=== PATIENT | female | born 1945 | race Caucasian/White ===

== ENCOUNTER → 2023-06-29 09:12 | Outpatient (REF) | payer MEDICARE, OTHER, SELFPAY ==
[2023-06-29 13:18] LABS: % Basophils 0.7 % (0-2); % Eosinophils 3.3 % (0-6); % Immature Granulocytes 0.2 % (0-0.5); % Lymphocytes 31.1 % (20.5-51.1); % Monocytes 8.2 % (1.7-9.3); % Neutrophils 56.5 % (42.2-75.2); Absolute Eosinophils 0.2 10^3/uL (0-0.7); Absolute Lymphocytes 1.7 10^3/uL (1.2-3.4); Absolute Monocytes 0.5 10^3/uL (0.1-0.6); Absolute Neutrophils 3.1 10^3/uL (1.4-6.5); Hematocrit 35.7 % (37.0-47.0); Hemoglobin 11.4 g/dL (12.0-16.0); Mean Corp Hgb Conc. 31.9 g/dL (33.0-37.0); Mean Corpuscular Hgb 30.7 pg (27.0-31.0); Mean Corpuscular Volume 96.2 fL (81.0-99.0); Mean Platelet Volume 10.5 fL (7.4-10.4); Nucleated Red Blood Cells % 0 %; Platelet Count 214 10^3/uL (130-400); Red Blood Cell Count 3.71 10^6/uL (4.20-5.40); Red Cell Dist. Width 13.6 % (11.5-14.5); White Blood Cell Count 5.5 10^3/uL (4.8-10.8)
[2023-06-29 13:39] LABS: ALT (SGPT) < 10 U/L (0-35); AST (SGOT) 27 U/L (14-36); Albumin 4.1 g/dl (3.5-5.0); Alkaline Phosphatase 65 U/L (38-126); Blood Urea Nitrogen 18 mg/dl (7-17); Calcium 9.4 mg/dl (8.4-10.2); Carbon Dioxide 28 mmol/L (22-30); Chloride 107 mmol/L (98-107); Glucose 89 mg/dl (70-99); Iron 109 ug/dl (37-170); Potassium 4.5 mmol/L (3.5-5.1); Sodium 138 mmol/L (135-145); Total Bilirubin 0.9 mg/dl (0.2-1.3); Total Protein 6.2 g/dl (6.3-8.2); Uric Acid 4.1 mg/dl (2.5-6.2); eGFR 51.43
[2023-06-29 13:49] LABS: Percent Saturation 43 % (20-50); Total Iron Binding Capacity 252 ug/dl (265-497)
[2023-06-29 14:36] LABS: Folate > 20.0 ng/ml (2.76-20); Vitamin B12 889 pg/ml (239-931)
== END ==
LOC: HWLAB 09:12
PROVIDERS: ATTENDING PHYSICIAN Nurse Practitioner Adult Health; FAMILY PHYSICIAN Nurse Practitioner Family; REFERRING PHYSICIAN Internal Medicine Rheumatology
DX: D50.9 Iron deficiency anemia, unspecified (principal); D51.3 Other dietary vitamin B12 deficiency anemia; M1A.3790 Chronic gout due to renal impairment, unspecified ankle and foot, without tophus (tophi); I48.91 Unspecified atrial fibrillation
CPT/HCPCS: 36415; 80053; 82607; 82728; 82746; 83540; 83550; 84550; 85025

== ENCOUNTER → 2023-09-27 08:33 | Outpatient (REF) | payer MEDICARE, OTHER, SELFPAY ==
[2023-09-27 12:40] LABS: % Basophils 0.7 % (0-2); % Eosinophils 2.8 % (0-6); % Immature Granulocytes 0.3 % (0-0.5); % Lymphocytes 32.1 % (20.5-51.1); % Neutrophils 56.1 % (42.2-75.2); Absolute Eosinophils 0.2 10^3/uL (0-0.7); Absolute Lymphocytes 1.9 10^3/uL (1.2-3.4); Absolute Monocytes 0.5 10^3/uL (0.1-0.6); Absolute Neutrophils 3.4 10^3/uL (1.4-6.5); Hematocrit 35.7 % (37.0-47.0); Hemoglobin 11.3 g/dL (12.0-16.0); Mean Corp Hgb Conc. 31.7 g/dL (33.0-37.0); Mean Corpuscular Hgb 30.5 pg (27.0-31.0); Mean Corpuscular Volume 96.2 fL (81.0-99.0); Mean Platelet Volume 10.9 fL (7.4-10.4); Nucleated Red Blood Cells % 0 %; Platelet Count 200 10^3/uL (130-400); Red Blood Cell Count 3.71 10^6/uL (4.20-5.40); Red Cell Dist. Width 14.2 % (11.5-14.5)
[2023-09-27 12:56] LABS: Iron 120 ug/dl (37-170)
[2023-09-27 13:06] LABS: Percent Saturation 50 % (20-50); Total Iron Binding Capacity 237 ug/dl (265-497)
[2023-09-27 14:46] LABS: Ferritin 57.5 ng/ml (11.1-264.0)
[2023-09-27 15:17] LABS: Folate 12.1 ng/ml (2.76-20); Vitamin B12 632 pg/ml (239-931)
== END ==
LOC: HWLAB 08:33
PROVIDERS: ATTENDING PHYSICIAN Nurse Practitioner Adult Health; FAMILY PHYSICIAN Nurse Practitioner Family
DX: D50.9 Iron deficiency anemia, unspecified (principal); D51.3 Other dietary vitamin B12 deficiency anemia
CPT/HCPCS: 36415; 82607; 82728; 82746; 83540; 83550; 85025

== ENCOUNTER → 2023-10-11 09:16 | Outpatient (REF) | payer MEDICARE, OTHER, SELFPAY ==
[2023-10-11 12:17] LABS: ALT (SGPT) < 10 U/L (0-35); AST (SGOT) 25 U/L (14-36); Albumin 3.8 g/dl (3.5-5.0); Alkaline Phosphatase 71 U/L (38-126); Blood Urea Nitrogen 16 mg/dl (7-17); Calcium 9.2 mg/dl (8.4-10.2); Carbon Dioxide 22 mmol/L (22-30); Chloride 109 mmol/L (98-107); Glucose 96 mg/dl (70-99); Sodium 141 mmol/L (135-145); Total Bilirubin 0.8 mg/dl (0.2-1.3); Total Protein 6.2 g/dl (6.3-8.2); eGFR > 60.00
[2023-10-11 12:47] LABS: TSH 2.86 uIU/ml (0.47-4.68)
[2023-10-12 14:01] LABS: Thyroglobulin <0.1 ng/mL (1.3-31.8); Thyroglobulin Antibodies <0.9 IU/mL (0.0-4.0)
== END ==
LOC: HWLAB 09:16
PROVIDERS: ATTENDING PHYSICIAN Internal Medicine Endocrinology, Diabetes & Metabolism; FAMILY PHYSICIAN Nurse Practitioner Family
DX: C73 Malignant neoplasm of thyroid gland (principal); E03.9 Hypothyroidism, unspecified
CPT/HCPCS: 36415; 80053; 84432; 84443; 86800

== ENCOUNTER → 2023-12-09 09:21 | Outpatient (REF) | payer MEDICARE, OTHER, SELFPAY ==
[2023-12-09 11:46] LABS: % Basophils 0.6 % (0-2); % Eosinophils 3.1 % (0-6); % Immature Granulocytes 0.3 % (0-0.5); % Monocytes 6.4 % (1.7-9.3); % Neutrophils 66.6 % (42.2-75.2); Absolute Eosinophils 0.2 10^3/uL (0-0.7); Absolute Lymphocytes 1.5 10^3/uL (1.2-3.4); Absolute Monocytes 0.4 10^3/uL (0.1-0.6); Absolute Neutrophils 4.3 10^3/uL (1.4-6.5); Hematocrit 33.3 % (37.0-47.0); Hemoglobin 10.7 g/dL (12.0-16.0); Mean Corp Hgb Conc. 32.1 g/dL (33.0-37.0); Mean Corpuscular Hgb 30.3 pg (27.0-31.0); Mean Corpuscular Volume 94.3 fL (81.0-99.0); Mean Platelet Volume 11.2 fL (7.4-10.4); Nucleated Red Blood Cells % 0 %; Platelet Count 219 10^3/uL (130-400); Red Blood Cell Count 3.53 10^6/uL (4.20-5.40); White Blood Cell Count 6.4 10^3/uL (4.8-10.8)
[2023-12-09 11:59] LABS: ALT (SGPT) < 10 U/L (0-35); AST (SGOT) 27 U/L (14-36); Albumin 4.4 g/dl (3.5-5.0); Alkaline Phosphatase 65 U/L (38-126); Blood Urea Nitrogen 15 mg/dl (7-17); Carbon Dioxide 26 mmol/L (22-30); Chloride 107 mmol/L (98-107); Glucose 90 mg/dl (70-99); Iron 74 ug/dl (37-170); Total Cholesterol 151 mg/dl (50-199); Total Protein 6.5 g/dl (6.3-8.2); Triglyceride 76 mg/dl (10-149); Very Low Density Lipoprotein 15 mg/dl (0-30); eGFR > 60.00
[2023-12-09 12:24] LABS: Calcium 9.4 mg/dl (8.4-10.2); HDL Cholesterol 66 mg/dl; LDL Cholesterol, Calculated 70 mg/dl; Potassium 4.2 mmol/L (3.5-5.1); Sodium 140 mmol/L (135-145)
[2023-12-09 12:41] LABS: Magnesium 1.9 mg/dl (1.6-2.3)
[2023-12-09 13:00] LABS: TSH Reflex To Free T4 3.27 uIU/ml (0.47-4.68)
[2023-12-09 13:04] LABS: Ferritin 59.3 ng/ml (11.1-264.0)
[2023-12-09 13:16] LABS: Glycohemoglobin (HgbA1c) 5.2 % (4.0-5.6)
== END ==
LOC: HWLAB 09:21
PROVIDERS: ATTENDING PHYSICIAN Nurse Practitioner Family
DX: Z00.00 Encounter for general adult medical examination without abnormal findings (principal); I48.0 Paroxysmal atrial fibrillation; I10 Essential (primary) hypertension; I34.0 Nonrheumatic mitral (valve) insufficiency; E78.00 Pure hypercholesterolemia, unspecified; E11.9 Type 2 diabetes mellitus without complications; M81.0 Age-related osteoporosis without current pathological fracture; I89.0 Lymphedema, not elsewhere classified; D50.8 Other iron deficiency anemias; M10.9 Gout, unspecified; Z12.39 Encounter for other screening for malignant neoplasm of breast; Z12.11 Encounter for screening for malignant neoplasm of colon; R91.8 Other nonspecific abnormal finding of lung field; N18.32 Chronic kidney disease, stage 3b; K21.9 Gastro-esophageal reflux disease without esophagitis; E83.42 Hypomagnesemia; I25.10 Atherosclerotic heart disease of native coronary artery without angina pectoris; I25.84 Coronary atherosclerosis due to calcified coronary lesion; Z87.892 Personal history of anaphylaxis
CPT/HCPCS: 36415; 80053; 80061; 82728; 83036; 83540; 83735; 84443; 85025

== ENCOUNTER → 2024-01-05 09:12 | Outpatient (REF) | payer MEDICARE, OTHER, SELFPAY ==
[2024-01-05 12:28] LABS: % Basophils 0.6 % (0-2); % Eosinophils 3.3 % (0-6); % Immature Granulocytes 0.3 % (0-0.5); % Lymphocytes 27.1 % (20.5-51.1); % Monocytes 6.8 % (1.7-9.3); % Neutrophils 61.9 % (42.2-75.2); Absolute Eosinophils 0.2 10^3/uL (0-0.7); Absolute Lymphocytes 1.8 10^3/uL (1.2-3.4); Absolute Monocytes 0.5 10^3/uL (0.1-0.6); Absolute Neutrophils 4.1 10^3/uL (1.4-6.5); Hematocrit 34.8 % (37.0-47.0); Mean Corp Hgb Conc. 31.6 g/dL (33.0-37.0); Mean Corpuscular Hgb 29.8 pg (27.0-31.0); Mean Corpuscular Volume 94.3 fL (81.0-99.0); Mean Platelet Volume 10.9 fL (7.4-10.4); Nucleated Red Blood Cells % 0 %; Platelet Count 222 10^3/uL (130-400); Red Blood Cell Count 3.69 10^6/uL (4.20-5.40); Red Cell Dist. Width 14.4 % (11.5-14.5); White Blood Cell Count 6.7 10^3/uL (4.8-10.8)
[2024-01-05 12:43] LABS: ALT (SGPT) < 10 U/L (0-35); AST (SGOT) 24 U/L (14-36); Albumin 4.1 g/dl (3.5-5.0); Alkaline Phosphatase 71 U/L (38-126); Blood Urea Nitrogen 25 mg/dl (7-17); Calcium 9.7 mg/dl (8.4-10.2); Carbon Dioxide 25 mmol/L (22-30); Chloride 107 mmol/L (98-107); Glucose 96 mg/dl (70-99); Potassium 4.3 mmol/L (3.5-5.1); Sodium 138 mmol/L (135-145); Total Bilirubin 0.9 mg/dl (0.2-1.3); Total Protein 6.2 g/dl (6.3-8.2); Uric Acid 4.4 mg/dl (2.5-6.2); eGFR 51.11
[2024-01-05 12:58] LABS: Vitamin D, 25-OH*** 37.5 ng/mL (30-80)
== END ==
LOC: HWLAB 09:12
PROVIDERS: ATTENDING PHYSICIAN Internal Medicine Rheumatology; FAMILY PHYSICIAN Nurse Practitioner Family
DX: E55.9 Vitamin D deficiency, unspecified (principal); M1A.3790 Chronic gout due to renal impairment, unspecified ankle and foot, without tophus (tophi)
CPT/HCPCS: 36415; 80053; 82306; 84550; 85025

== ENCOUNTER → 2024-04-04 11:25 | Outpatient (REF) | payer MEDICARE, OTHER, SELFPAY | LOC: HWWDC 11:25 | PROVIDERS: ATTENDING PHYSICIAN Nurse Practitioner Family | DX: Z12.39 Encounter for other screening for malignant neoplasm of breast (principal) | CPT/HCPCS: 77063; 77067 ==

== ENCOUNTER → 2024-05-22 09:11 | Outpatient (REF) | payer MEDICARE, OTHER, SELFPAY ==
[2024-05-22 11:40] LABS: Blood Urea Nitrogen 16 mg/dl (7-17); Calcium 9.3 mg/dl (8.4-10.2); Carbon Dioxide 24 mmol/L (22-30); Chloride 107 mmol/L (98-107); Glucose 95 mg/dl (70-99); Magnesium 1.9 mg/dl (1.6-2.3); Potassium 4.3 mmol/L (3.5-5.1); Sodium 140 mmol/L (135-145); eGFR 57.31
[2024-05-22 11:56] LABS: Urine Albumin Trace (Neg - Trace); Urine Bilirubin Negative (Negative); Urine Character Slightly Cloudy (Clear); Urine Color Yellow; Urine Glucose Negative (Negative); Urine Ketone Negative (Negative); Urine Leukocyte 2+ (Negative); Urine Nitrite Negative (Negative); Urine Occult Blood Trace (Negative); Urine Urobilinogen Negative (Neg - 1+)
[2024-05-22 12:14] LABS: Urine Squamous Cell 16-20 /LPF (Few)
[2024-05-22 12:15] LABS: Urine Bacteria Moderate (Negative)
[2024-05-22 13:12] LABS: Urine Protein 9 mg/dl
[2024-05-24 09:34] LABS: Intact PTH 135.1 pg/ml (13.6-85.8)
== END ==
LOC: HWLAB 09:11
PROVIDERS: ATTENDING PHYSICIAN Specialist; FAMILY PHYSICIAN Nurse Practitioner Family
DX: I10 Essential (primary) hypertension (principal); E78.00 Pure hypercholesterolemia, unspecified; N17.9 Acute kidney failure, unspecified; D50.8 Other iron deficiency anemias
CPT/HCPCS: 36415; 80048; 81003; 81015; 82570; 83735; 83970; 84156

== ENCOUNTER → 2024-06-19 12:44 | Outpatient (REF) | payer MEDICARE, OTHER, SELFPAY | LOC: HWRAD 12:44 | PROVIDERS: ATTENDING PHYSICIAN Nurse Practitioner Family | DX: I10 Essential (primary) hypertension (principal); M25.532 Pain in left wrist | CPT/HCPCS: 73110; 73130 ==

== ENCOUNTER → 2024-07-13 09:11 | Outpatient (REF) | payer MEDICARE, OTHER, SELFPAY ==
[2024-07-13 12:17] LABS: % Basophils 0.9 % (0-2); % Eosinophils 3.4 % (0-6); % Immature Granulocytes 0.4 % (0-0.5); % Lymphocytes 31.3 % (20.5-51.1); % Monocytes 7.3 % (1.7-9.3); % Neutrophils 56.7 % (42.2-75.2); Absolute Basophils 0.1 10^3/uL (0-0.2); Absolute Eosinophils 0.2 10^3/uL (0-0.7); Absolute Lymphocytes 1.8 10^3/uL (1.2-3.4); Absolute Monocytes 0.4 10^3/uL (0.1-0.6); Absolute Neutrophils 3.2 10^3/uL (1.4-6.5); Hematocrit 36.2 % (37.0-47.0); Hemoglobin 11.4 g/dL (12.0-16.0); Mean Corp Hgb Conc. 31.5 g/dL (33.0-37.0); Mean Corpuscular Hgb 30.5 pg (27.0-31.0); Mean Corpuscular Volume 96.8 fL (81.0-99.0); Mean Platelet Volume 10.6 fL (7.4-10.4); Nucleated Red Blood Cells % 0 %; Platelet Count 206 10^3/uL (130-400); Red Blood Cell Count 3.74 10^6/uL (4.20-5.40); Red Cell Dist. Width 14.5 % (11.5-14.5); White Blood Cell Count 5.6 10^3/uL (4.8-10.8)
[2024-07-13 12:36] LABS: Uric Acid 4.6 mg/dl (2.5-6.2)
== END ==
LOC: HWLAB 09:11
PROVIDERS: ATTENDING PHYSICIAN Internal Medicine Rheumatology; FAMILY PHYSICIAN Nurse Practitioner Family
DX: M1A.3790 Chronic gout due to renal impairment, unspecified ankle and foot, without tophus (tophi) (principal)
CPT/HCPCS: 36415; 84550; 85025

== ENCOUNTER → 2024-10-06 08:10 | Outpatient (REF) | payer MEDICARE, OTHER, SELFPAY ==
[2024-10-06 11:26] LABS: ALT (SGPT) < 10 U/L (0-35); AST (SGOT) 20 U/L (14-36); Albumin 4.1 g/dl (3.5-5.0); Alkaline Phosphatase 72 U/L (38-126); Blood Urea Nitrogen 20 mg/dl (7-17); Calcium 9.9 mg/dl (8.4-10.2); Carbon Dioxide 24 mmol/L (22-30); Chloride 111 mmol/L (98-107); Glucose 92 mg/dl (70-99); Potassium 4.3 mmol/L (3.5-5.1); Sodium 141 mmol/L (135-145); Total Bilirubin 0.7 mg/dl (0.2-1.3); Total Protein 6.2 g/dl (6.3-8.2); eGFR 57.31
[2024-10-06 11:52] LABS: TSH 1.75 uIU/ml (0.47-4.68)
[2024-10-07 18:33] LABS: Thyroglobulin <0.1 ng/mL (1.3-31.8); Thyroglobulin Antibodies <1.5 IU/mL (0.0-4.0)
== END ==
LOC: HWLAB 08:10
PROVIDERS: ATTENDING PHYSICIAN Internal Medicine Endocrinology, Diabetes & Metabolism; FAMILY PHYSICIAN Nurse Practitioner Family
DX: C73 Malignant neoplasm of thyroid gland (principal)
CPT/HCPCS: 36415; 80053; 84432; 84443; 86800

== ENCOUNTER → 2024-11-09 09:11 | Outpatient (REF) | payer MEDICARE, OTHER, SELFPAY ==
[2024-11-09 12:30] LABS: % Basophils 0.6 % (0-2); % Eosinophils 4.2 % (0-6); % Immature Granulocytes 0.3 % (0-0.5); % Lymphocytes 32.7 % (20.5-51.1); % Monocytes 8.1 % (1.7-9.3); % Neutrophils 54.1 % (42.2-75.2); Absolute Eosinophils 0.3 10^3/uL (0-0.7); Absolute Monocytes 0.5 10^3/uL (0.1-0.6); Absolute Neutrophils 3.4 10^3/uL (1.4-6.5); Hematocrit 35.9 % (37.0-47.0); Hemoglobin 11.5 g/dL (12.0-16.0); Mean Corpuscular Hgb 30.1 pg (27.0-31.0); Mean Platelet Volume 10.9 fL (7.4-10.4); Nucleated Red Blood Cells % 0 %; Platelet Count 193 10^3/uL (130-400); Red Blood Cell Count 3.82 10^6/uL (4.20-5.40); Red Cell Dist. Width 14.6 % (11.5-14.5); White Blood Cell Count 6.2 10^3/uL (4.8-10.8)
[2024-11-09 13:13] LABS: Iron 98 ug/dl (37-170)
[2024-11-09 13:22] LABS: Percent Saturation 40 % (20-50); Total Iron Binding Capacity 243 ug/dl (265-497)
[2024-11-09 13:50] LABS: Ferritin 69.3 ng/ml (11.1-264.0)
[2024-11-09 14:21] LABS: Folate 7.7 ng/ml (2.76-20); Vitamin B12 410 pg/ml (239-931)
== END ==
LOC: HWLAB 09:11
PROVIDERS: ATTENDING PHYSICIAN Internal Medicine Hematology & Oncology; FAMILY PHYSICIAN Nurse Practitioner Family
DX: D50.9 Iron deficiency anemia, unspecified (principal); D51.3 Other dietary vitamin B12 deficiency anemia
CPT/HCPCS: 36415; 82607; 82728; 82746; 83540; 83550; 85025

== ENCOUNTER → 2025-01-05 07:20 | Outpatient (REF) | payer MEDICARE, OTHER, SELFPAY ==
[2025-01-05 10:05] LABS: Hematocrit 38.2 % (37.0-47.0); Hemoglobin 11.9 g/dL (12.0-16.0); Mean Corp Hgb Conc. 31.2 g/dL (33.0-37.0); Mean Corpuscular Volume 95.7 fL (81.0-99.0); Nucleated Red Blood Cells % 0 %; Platelet Count 248 10^3/uL (130-400); Red Cell Dist. Width 15.0 % (11.5-14.5)
[2025-01-05 10:15] LABS: Albumin 4.5 g/dl (3.5-5.0); Blood Urea Nitrogen 22 mg/dl (7-17); Calcium 9.9 mg/dl (8.4-10.2); Chloride 108 mmol/L (98-107); Potassium 4.4 mmol/L (3.5-5.1); Sodium 140 mmol/L (135-145); Total Protein 6.8 g/dl (6.3-8.2)
[2025-01-05 10:49] LABS: Vitamin D, 25-OH*** 36.0 ng/mL (30-80)
[2025-01-05 10:50] LABS: ALT (SGPT) < 10 U/L (0-35); AST (SGOT) 20 U/L (14-36); Alkaline Phosphatase 71 U/L (38-126); Carbon Dioxide 24 mmol/L (22-30); Glucose 93 mg/dl (70-99); eGFR 56.95
[2025-01-05 11:23] LABS: C-Reactive Protein < 5.00 mg/L (0.0-10.00)
== END ==
LOC: HWRAD 07:20
PROVIDERS: ATTENDING PHYSICIAN Internal Medicine Rheumatology; FAMILY PHYSICIAN Nurse Practitioner Family
DX: M81.0 Age-related osteoporosis without current pathological fracture (principal); E55.9 Vitamin D deficiency, unspecified; M1A.3790 Chronic gout due to renal impairment, unspecified ankle and foot, without tophus (tophi)
CPT/HCPCS: 36415; 77080; 80053; 82306; 85025; 85652; 86140

== ENCOUNTER → 2025-04-09 07:25 | Outpatient (REF) | payer MEDICARE, OTHER, SELFPAY | LOC: WDC 07:25 | PROVIDERS: ATTENDING PHYSICIAN Nurse Practitioner Family | DX: Z12.39 Encounter for other screening for malignant neoplasm of breast (principal); Z12.31 Encounter for screening mammogram for malignant neoplasm of breast | CPT/HCPCS: 77063; 77067 ==